=== PATIENT | female | born 1970 | race Hispanic/Latino ===

== ENCOUNTER 2022-03-25 10:12 | Outpatient (CLI) | payer SELFPAY | END 2022-03-25 10:13 | disposition home or self-care (01) | LOC: NAV RAD 10:12 | PROVIDERS: ATTEND Family Medicine | DX: M25.542 Pain in joints of left hand (principal) ==

== ENCOUNTER 2023-03-24 08:39 | Outpatient (CLI) | payer OTHER | END 2023-03-24 08:40 | disposition home or self-care (01) | LOC: NAV RAD 08:39 | PROVIDERS: ATTEND Family Medicine | DX: R10.9 Unspecified abdominal pain (principal) | CPT/HCPCS: 74019 ==